=== PATIENT | male | born 1995 | race African-American/Black ===

== ENCOUNTER 2020-07-11 19:41 | Emergency (ER) | payer SELFPAY ==
[~2020-07-11] VITALS: Ht 182.9 cm; Wt 91.0 kg
[2020-07-11 20:00] VITALS: BP 121/62
[2020-07-11] MEDS ORDERED: OXYC-93 MT (21:53)
== END 2020-07-11 22:28 | disposition home or self-care (01) ==
LOC: ER 19:41
DX: Z48.01 Encounter for change or removal of surgical wound dressing (principal); F14.10 Cocaine abuse, uncomplicated; F12.10 Cannabis abuse, uncomplicated; F17.210 Nicotine dependence, cigarettes, uncomplicated; Z87.81 Personal history of (healed) traumatic fracture
CPT/HCPCS: 99283

== ENCOUNTER 2020-07-12 00:41 | Emergency (ER) | payer SELFPAY ==
[~2020-07-12] VITALS: Ht 188 cm; Wt 82.0 kg
[~2020-07-12 00:41] MED LIST: OXYC-93 MT
[2020-07-12 02:15] LABS: CHLORIDE 107 mEq/L (98-107)
[2020-07-12 02:19] LABS: ETHANOL BLOOD < 10 mg/dL
[2020-07-12 02:41] LABS: EOSINOPHILS % 5.2 % (0.0-5.0); HEMATOCRIT. 28.8 % (42.0-52.0); HEMOGLOBIN. 9.4 g/dL (14.0-18.0); LYMPHOCYTES % 24.7 % (20.0-50.0); MEAN CORPUSCULAR VOLUME 94.9 fL (80.0-94.0); MEAN PLATELET VOLUME 8.2 fl (7.4-10.4); MONOCYTES % 8.2 % (2.0-8.0); NEUTROPHILS % 59.9 % (40.0-76.0); PLATELET 411 x1000/uL (130-400); RED BLOOD CELL COUNT 3.04 mill/uL (4.7-6.1); RED CELL DISTRIBUTION WIDTH 13.8 % (11.6-14.6)
[2020-07-12] MEDS ORDERED: IBUPROFEN 600MG TABLET PO ONE (03:00)
[2020-07-12 03:16] LABS: *AMPHETAMINES SCREEN URINE PRESUMTIVE POSITIVE (NEGATIVE)
[2020-07-12 03:17] LABS: *BARBITURATES SCREEN URINE NEGATIVE (NEGATIVE); *BENZODIAZEPINES SCREEN URINE NEGATIVE (NEGATIVE); *COCAINE SCREEN URINE NEGATIVE (NEGATIVE); METHADONE URINE SCREEN NEGATIVE (NEGATIVE); OPIATES URINE SCREEN NEGATIVE (NEGATIVE)
[2020-07-12 03:18] LABS: CANNABINOID URINE SCREEN PRESUMTIVE POSITIVE (NEGATIVE); PHENCYCLIDINE URINE SCREEN NEGATIVE (NEGATIVE)
[2020-07-12 13:48] VITALS: BP 114/81
== END 2020-07-12 13:51 | disposition home or self-care (01) ==
LOC: ER 00:41
DX: U07.1 COVID-19 (principal); R45.851 Suicidal ideations; R45.850 Homicidal ideations; Z87.828 Personal history of other (healed) physical injury and trauma; I10 Essential (primary) hypertension
CPT/HCPCS: 36415; 80053; 80305; 80307; 80320; 80329; 85025; 93005; 99285; C9803; U0003; G0480

== ENCOUNTER 2020-08-18 08:20 | Emergency (ER) | payer SELFPAY ==
[~2020-08-18] VITALS: Ht 180.3 cm; Wt 84.0 kg
[2020-08-18] MEDS ORDERED: LEVETIRACETAM 1000MG PREMIX 100 ML IV ONE (09:15)
[2020-08-18] MEDS ORDERED: ONDANSETRON HCL 4MG/2ML INJ IV ONE (09:15)
[2020-08-18] MEDS ORDERED: MORPHINE SULFATE 4 MG/ML CPJ (NOT FOR IM USE) IV ONE (09:15)
[2020-08-18 09:57] LABS: BASOPHILS % 1.3 % (0.0-2.0); EOSINOPHILS % 2.6 % (0.0-5.0); HEMATOCRIT. 40.8 % (42.0-52.0); HEMOGLOBIN. 13.4 g/dL (14.0-18.0); LYMPHOCYTES % 16.8 % (20.0-50.0); MEAN CORPUSCULAR HEMOGLOBIN 29.6 pg (28.0-32.0); MEAN CORPUSCULAR VOLUME 90.2 fL (80.0-94.0); MEAN PLATELET VOLUME 9.6 fl (7.4-10.4); MONOCYTES % 7.6 % (2.0-8.0); NEUTROPHILS % 71.7 % (40.0-76.0); PLATELET 197 x1000/uL (130-400); RED BLOOD CELL COUNT 4.53 mill/uL (4.7-6.1)
[2020-08-18 10:01] LABS: CHLORIDE 106 mEq/L (98-107)
[2020-08-18 10:04] LABS: *BENZODIAZEPINES SCREEN URINE NEGATIVE (NEGATIVE)
[2020-08-18 10:05] LABS: *AMPHETAMINES SCREEN URINE PRESUMTIVE POSITIVE (NEGATIVE); *BARBITURATES SCREEN URINE NEGATIVE (NEGATIVE); *COCAINE SCREEN URINE NEGATIVE (NEGATIVE); CANNABINOID URINE SCREEN PRESUMTIVE POSITIVE (NEGATIVE); METHADONE URINE SCREEN NEGATIVE (NEGATIVE); OPIATES URINE SCREEN NEGATIVE (NEGATIVE); PHENCYCLIDINE URINE SCREEN NEGATIVE (NEGATIVE)
[2020-08-18 10:06] LABS: ETHANOL BLOOD < 10 mg/dL
[2020-08-18 11:00] VITALS: BP 116/80
[2020-08-18] MEDS ORDERED: IBUP-2029 MT (12:12)
== END 2020-08-18 14:12 | disposition home or self-care (01) ==
LOC: ER 08:20
DX: G40.909 Epilepsy, unspecified, not intractable, without status epilepticus (principal); I10 Essential (primary) hypertension; Z87.81 Personal history of (healed) traumatic fracture
CPT/HCPCS: 36415; 70450; 80053; 80305; 80320; 85025; 93005; 96365; 96375; 99285; J1953; J2270; J2405; Z7610; G0480

== ENCOUNTER 2020-09-28 01:55 | Emergency (ER) | payer SELFPAY ==
[~2020-09-28] VITALS: Ht 180.3 cm; Wt 82.0 kg
[~2020-09-28 01:55] MED LIST changes: +IBUP-2029 MT
[2020-09-28] MEDS ORDERED: ONDANSETRON HCL 4MG/2ML INJ IV STA (03:05)
[2020-09-28] MEDS ORDERED: CEFAZOLIN 1000MG PREMIX 50 ML IV ONE (03:15)
[2020-09-28] MEDS ORDERED: TETANUS, DIPHTHERIA, PERTUSSIS VAC/PF 0.5ML (>7YR OLD) IM ONE (03:15)
[2020-09-28] MEDS ORDERED: BACITRACIN ZINC OINT UDPKT TOP ONE (03:15)
[2020-09-28] MEDS ORDERED: SODIUM CHLORIDE 0.9% 1,000 ML IV ONE (03:15)
[2020-09-28] MEDS ORDERED: FENTANYL CITRATE/PF 50MCG/ML 2ML VIAL IV ONE (03:15)
[2020-09-28 03:55] LABS: CHLORIDE 108 mEq/L (98-107)
[2020-09-28 03:56] LABS: BASOPHILS % 0.9 % (0.0-2.0); EOSINOPHILS % 0.6 % (0.0-5.0); HEMATOCRIT. 38.9 % (42.0-52.0); HEMOGLOBIN. 12.7 g/dL (14.0-18.0); MEAN CORPUSCULAR HEMOGLOBIN 30.1 pg (28.0-32.0); MEAN CORPUSCULAR VOLUME 92.4 fL (80.0-94.0); MEAN PLATELET VOLUME 9.4 fl (7.4-10.4); MONOCYTES % 6.3 % (2.0-8.0); NEUTROPHILS % 82.2 % (40.0-76.0); PLATELET 203 x1000/uL (130-400); RED BLOOD CELL COUNT 4.21 mill/uL (4.7-6.1)
[2020-09-28] MEDS ORDERED: LORA10CA MT (05:43)
[2020-09-28] MEDS ORDERED: IBUP-2029 MT (05:43)
[2020-09-28] MEDS ORDERED: AMOX-424 MT (05:43)
[2020-09-28 08:21] VITALS: BP 129/88
== END 2020-09-28 10:00 | disposition home or self-care (01) ==
LOC: ER 02:22
DX: S02.40CA Maxillary fracture, right side, initial encounter for closed fracture (principal); I10 Essential (primary) hypertension; Z79.899 Other long term (current) drug therapy; S06.9X0A Unspecified intracranial injury without loss of consciousness, initial encounter; Y04.0XXA Assault by unarmed brawl or fight, initial encounter; Y93.89 Activity, other specified; Y92.89 Other specified places as the place of occurrence of the external cause; Y99.8 Other external cause status
CPT/HCPCS: 36415; 70450; 70486; 71045; 72125; 80048; 82962; 85025; 90471; 90715; 96365; 96375; 99285; A4217; J0690; J2405; J3010; J7030; Z7610

== ENCOUNTER 2020-12-02 01:28 | Emergency (ER) | payer SELFPAY ==
[~2020-12-02] VITALS: Ht 182.9 cm; Wt 82.0 kg
[~2020-12-02 01:28] MED LIST changes: +AMOX-424 MT; +LORA10CA MT
[2020-12-02 01:30] VITALS: BP 142/88
== END 2020-12-02 02:30 | disposition home or self-care (01) ==
LOC: ER 01:28
DX: F43.20 Adjustment disorder, unspecified (principal); I10 Essential (primary) hypertension; Z79.899 Other long term (current) drug therapy
CPT/HCPCS: 99283

== ENCOUNTER 2021-01-12 11:04 | Emergency (ER) | payer MEDICAID ==
[~2021-01-12] VITALS: Ht 182.9 cm; Wt 80.0 kg
[2021-01-12] MEDS ORDERED: IBUPROFEN 600MG TABLET PO ONE (11:30)
[2021-01-12] MEDS ORDERED: IBUP-2029 MT (12:46)
[2021-01-12 13:03] VITALS: BP 118/78
== END 2021-01-12 13:03 | disposition home or self-care (01) ==
LOC: ER 11:11
DX: M79.18 Myalgia, other site (principal); I10 Essential (primary) hypertension; R56.9 Unspecified convulsions; V49.9XXA Car occupant (driver) (passenger) injured in unspecified traffic accident, initial encounter; Y93.9 Activity, unspecified; Y92.410 Unspecified street and highway as the place of occurrence of the external cause; Z98.890 Other specified postprocedural states
CPT/HCPCS: 73560; 73590; 73610; 99283; Z7610

== ENCOUNTER 2021-01-12 17:20 | Emergency (ER) | payer MEDICAID ==
[~2021-01-12] VITALS: Ht 177.8 cm; Wt 75.0 kg
[2021-01-12] MEDS ORDERED: DIPHENHYDRAMINE 50MG/ML VIAL IM ONE (17:30)
[2021-01-12] MEDS ORDERED: LORAZEPAM 2MG/ML CPJ IM ONE (17:30)
[2021-01-12] MEDS ORDERED: TETANUS AND DIPHTHERIA TOX/PF 0.5ML SYR (ADULT) IM ONE (17:30)
[2021-01-12 18:14] LABS: CHLORIDE 109 mEq/L (98-107)
[2021-01-12 18:15] LABS: BASOPHILS % 1.5 % (0.0-2.0); EOSINOPHILS % 1.4 % (0.0-5.0); HEMATOCRIT. 40.6 % (42.0-52.0); HEMOGLOBIN. 14.1 g/dL (14.0-18.0); LYMPHOCYTES % 24.6 % (20.0-50.0); MEAN CORPUSCULAR HEMOGLOBIN 31.9 pg (28.0-32.0); MEAN PLATELET VOLUME 9.4 fl (7.4-10.4); MONOCYTES % 12.7 % (2.0-8.0); NEUTROPHILS % 59.8 % (40.0-76.0); PLATELET 216 x1000/uL (130-400); RED BLOOD CELL COUNT 4.41 mill/uL (4.7-6.1); RED CELL DISTRIBUTION WIDTH 13.5 % (11.6-14.6)
[2021-01-12] MEDS ORDERED: TETANUS, DIPHTHERIA, PERTUSSIS VAC/PF 0.5ML (>7YR OLD) IM ONE (18:15)
[2021-01-12 18:19] LABS: ETHANOL BLOOD < 10 mg/dL
[2021-01-12 18:29] LABS: CLARITY URINE CLOUDY (CLEAR); COLOR URINE DARK YELLOW (YELLOW); KETONES URINE 2+ (NEGATIVE); LEUKOCYTE ESTERASE URINE 2+ (NEGATIVE); NITRITE URINE NEGATIVE (NEGATIVE); OCCULT BLOOD URINE TRACE (NEGATIVE); PH URINE 5.5 (4.5-8.0); PROTEIN URINE 1+ (NEGATIVE); SPECIFIC GRAVITY URINE 1.031 (1.005-1.030)
[2021-01-12 19:01] LABS: *AMPHETAMINES SCREEN URINE PRESUMTIVE POSITIVE (NEGATIVE); *BARBITURATES SCREEN URINE NEGATIVE (NEGATIVE); *BENZODIAZEPINES SCREEN URINE NEGATIVE (NEGATIVE); *COCAINE SCREEN URINE NEGATIVE (NEGATIVE); METHADONE URINE SCREEN NEGATIVE (NEGATIVE); OPIATES URINE SCREEN NEGATIVE (NEGATIVE); PHENCYCLIDINE URINE SCREEN NEGATIVE (NEGATIVE)
[2021-01-12 19:02] LABS: CANNABINOID URINE SCREEN PRESUMTIVE POSITIVE (NEGATIVE)
[2021-01-12] MEDS: DOXYCYCLINE HYCLATE 100MG CAPSULE PO SCH (23:00)
[2021-01-12] MEDS ORDERED: CEFTRIAXONE SODIUM 500 MG/VIAL IV ONE (23:00)
[2021-01-13] MEDS: DOXYCYCLINE HYCLATE 100MG CAPSULE PO SCH ×3 (09:00→13:51)
[2021-01-13] MEDS ORDERED: TRAZODONE HCL 50MG TABLET PO SCH (18:00)
[2021-01-13] MEDS ORDERED: HALOPERIDOL LACTATE 5MG/ML VIAL IM STA (20:04)
[2021-01-13] MEDS ORDERED: LORAZEPAM 2MG/ML CPJ IM STA (20:04)
[2021-01-15] MEDS ORDERED: HALOPERIDOL LACTATE 5MG/ML VIAL IM ONE (11:30)
[2021-01-15] MEDS ORDERED: LORAZEPAM 2MG/ML CPJ IM ONE (11:30)
[2021-01-15] MEDS ORDERED: OLANZAPINE 10 MG/VIAL IM ONE (13:15)
[2021-01-16 10:20] VITALS: BP 130/81
== END 2021-01-16 10:49 | disposition home or self-care (01) ==
LOC: ER 17:20
DX: R45.851 Suicidal ideations (principal); R44.0 Auditory hallucinations; R56.9 Unspecified convulsions; I10 Essential (primary) hypertension; F31.9 Bipolar disorder, unspecified; F19.10 Other psychoactive substance abuse, uncomplicated; N39.0 Urinary tract infection, site not specified; Z20.2 Contact with and (suspected) exposure to infections with a predominantly sexual mode of transmission; Z59.0 Homelessness
CPT/HCPCS: 36415; 70450; 80053; 80305; 80307; 80320; 80329; 81003; 85025; 87086; 87426; 90715; 96372; 99285; J0696; J1200; J1630; J2060; 90714; G0480

== ENCOUNTER 2021-05-01 11:34 | Emergency (ER) | payer SELFPAY ==
[~2021-05-01] VITALS: Ht 177.8 cm; Wt 81.0 kg
[2021-05-01] MEDS ORDERED: SODIUM CHLORIDE 0.9% 1,000 ML IV ONE (12:15)
[2021-05-01 12:46] LABS: CHLORIDE 109 mEq/L (98-107)
[2021-05-01 12:52] LABS: ETHANOL BLOOD < 10 mg/dL
[2021-05-01 12:53] LABS: BASOPHILS % 0.8 % (0.0-2.0); EOSINOPHILS % 0.6 % (0.0-5.0); HEMATOCRIT. 38.5 % (42.0-52.0); LYMPHOCYTES % 21.1 % (20.0-50.0); MEAN CORPUSCULAR VOLUME 94.9 fL (80.0-94.0); MEAN PLATELET VOLUME 8.6 fl (7.4-10.4); MONOCYTES % 7.9 % (2.0-8.0); NEUTROPHILS % 69.6 % (40.0-76.0); PLATELET 188 x1000/uL (130-400); RED BLOOD CELL COUNT 4.05 mill/uL (4.7-6.1)
[2021-05-01 13:06] LABS: *AMPHETAMINES SCREEN URINE PRESUMTIVE POSITIVE (NEGATIVE); *BARBITURATES SCREEN URINE NEGATIVE (NEGATIVE); *BENZODIAZEPINES SCREEN URINE NEGATIVE (NEGATIVE); *COCAINE SCREEN URINE NEGATIVE (NEGATIVE); CANNABINOID URINE SCREEN PRESUMTIVE POSITIVE (NEGATIVE); METHADONE URINE SCREEN NEGATIVE (NEGATIVE); OPIATES URINE SCREEN NEGATIVE (NEGATIVE); PHENCYCLIDINE URINE SCREEN NEGATIVE (NEGATIVE)
[2021-05-01 13:07] LABS: VALPROIC ACID < 3.0 ug/mL (50-100)
[2021-05-01 13:15] VITALS: BP 135/73
[2021-05-01] MEDS ORDERED: IBUPROFEN 400MG TABLET PO ONE (13:15)
[2021-05-01] MEDS ORDERED: IBUP-2028 MT (14:22)
== END 2021-05-01 17:19 | disposition home or self-care (01) ==
LOC: ER 11:34
DX: M54.2 Cervicalgia (principal); M54.9 Dorsalgia, unspecified; M25.562 Pain in left knee; M25.561 Pain in right knee; T50.991A Poisoning by other drugs, medicaments and biological substances, accidental (unintentional), initial encounter; Y92.9 Unspecified place or not applicable; F31.9 Bipolar disorder, unspecified; I10 Essential (primary) hypertension; G40.909 Epilepsy, unspecified, not intractable, without status epilepticus; V89.2XXA Person injured in unspecified motor-vehicle accident, traffic, initial encounter; Y93.89 Activity, other specified; Y92.410 Unspecified street and highway as the place of occurrence of the external cause; Y99.9 Unspecified external cause status
CPT/HCPCS: 36415; 70450; 72125; 73560; 80053; 80165; 80305; 80320; 85025; 99285; J7030; G0480

== ENCOUNTER 2022-01-03 13:17 | Emergency (ER) | payer MEDICAID ==
[~2022-01-03] VITALS: Ht 177.8 cm; Wt 73.0 kg
[~2022-01-03 13:17] MED LIST changes: +IBUP-2028 MT
[2022-01-03 13:21] VITALS: BP 113/69
[2022-01-03] MEDS ORDERED: ACETAMINOPHEN 500MG TABLET PO STA (13:40)
== END 2022-01-03 14:24 | disposition left against medical advice (07) ==
LOC: ER 13:17
DX: R56.9 Unspecified convulsions (principal); I10 Essential (primary) hypertension; Z98.890 Other specified postprocedural states
CPT/HCPCS: 82962; 93005; 99283

== ENCOUNTER 2022-01-17 00:51 | Emergency (ER) | payer MEDICAID ==
[~2022-01-17] VITALS: Ht 188 cm; Wt 85.5 kg
[2022-01-17 01:01] VITALS: BP 124/77
== END 2022-01-17 02:30 | disposition left against medical advice (07) ==
LOC: ER 01:08
DX: Z53.21 Procedure and treatment not carried out due to patient leaving prior to being seen by health care provider (principal)

== ENCOUNTER 2022-02-01 22:42 | Emergency (ER) | payer MEDICAID ==
[~2022-02-01] VITALS: Ht 182.9 cm; Wt 86.0 kg
[2022-02-01] MEDS ORDERED: LEVETIRACETAM 500MG PREMIX 100 ML IV ONE (23:30)
[2022-02-01 23:36] LABS: BASOPHILS % 0.6 % (0.0-2.0); EOSINOPHILS % 0.4 % (0.0-5.0); HEMATOCRIT. 43.1 % (42.0-52.0); HEMOGLOBIN. 14.2 g/dL (14.0-18.0); MEAN CORPUSCULAR HEMOGLOBIN 31.4 pg (28.0-32.0); MEAN CORPUSCULAR VOLUME 95.1 fL (80.0-94.0); MONOCYTES % 13.2 % (2.0-8.0); NEUTROPHILS % 74.8 % (40.0-76.0); PLATELET 163 x1000/uL (130-400); RED BLOOD CELL COUNT 4.53 mill/uL (4.7-6.1); RED CELL DISTRIBUTION WIDTH 12.7 % (11.6-14.6)
[2022-02-01 23:56] LABS: CHLORIDE 102 mEq/L (98-107)
[2022-02-02 00:05] LABS: ETHANOL BLOOD < 10 mg/dL
[2022-02-02 00:06] LABS: CARBAMAZEPINE < 0.5 ug/mL (4-12); PHENOBARBITAL < 2.1 ug/mL (15.0-40.0); VALPROIC ACID < 3.0 ug/mL (50-100)
[2022-02-02] MEDS ORDERED: KETOROLAC 15MG/ML VIAL IV ONE (00:30)
[2022-02-02] MEDS ORDERED: MIDAZOLAM HCL 2 MG/2 ML VIAL IV ONE (00:45)
[2022-02-02 01:32] LABS: *AMPHETAMINES SCREEN URINE PRESUMTIVE POSITIVE (NEGATIVE); *BARBITURATES SCREEN URINE NEGATIVE (NEGATIVE); *BENZODIAZEPINES SCREEN URINE NEGATIVE (NEGATIVE); *COCAINE SCREEN URINE NEGATIVE (NEGATIVE); CANNABINOID URINE SCREEN PRESUMTIVE POSITIVE (NEGATIVE); METHADONE URINE SCREEN NEGATIVE (NEGATIVE); OPIATES URINE SCREEN NEGATIVE (NEGATIVE); PHENCYCLIDINE URINE SCREEN NEGATIVE (NEGATIVE)
[2022-02-02] MEDS ORDERED: KEPP500 MT (01:38)
[2022-02-02 04:07] VITALS: BP 111/69
== END 2022-02-02 04:10 | disposition home or self-care (01) ==
LOC: ER 22:42
DX: R56.9 Unspecified convulsions (principal); F19.10 Other psychoactive substance abuse, uncomplicated; F10.229 Alcohol dependence with intoxication, unspecified; Y90.0 Blood alcohol level of less than 20 mg/100 ml; F31.9 Bipolar disorder, unspecified; I10 Essential (primary) hypertension; Z79.899 Other long term (current) drug therapy
CPT/HCPCS: 36415; 70450; 80053; 80156; 80165; 80184; 80185; 80305; 80320; 85025; 87070; 87430; 93005; 96374; 96375; 99285; J1885; J1953; J2250; G0480

== ENCOUNTER 2022-02-03 09:47 | Emergency (ER) | payer MEDICAID ==
[~2022-02-03] VITALS: Ht 188 cm; Wt 89.0 kg
[~2022-02-03 09:47] MED LIST changes: +KEPP500 MT
[2022-02-03 09:55] VITALS: BP 98/52
[2022-02-03 10:30] LABS: BASOPHILS % 0.4 % (0.0-2.0); EOSINOPHILS % 0.5 % (0.0-5.0); HEMATOCRIT. 38.9 % (42.0-52.0); HEMOGLOBIN. 13.2 g/dL (14.0-18.0); LYMPHOCYTES % 16.7 % (20.0-50.0); MEAN CORPUSCULAR HEMOGLOBIN 31.9 pg (28.0-32.0); MEAN CORPUSCULAR VOLUME 94.1 fL (80.0-94.0); MEAN PLATELET VOLUME 9.1 fl (7.4-10.4); MONOCYTES % 11.5 % (2.0-8.0); NEUTROPHILS % 70.9 % (40.0-76.0); PLATELET 159 x1000/uL (130-400); RED BLOOD CELL COUNT 4.13 mill/uL (4.7-6.1); RED CELL DISTRIBUTION WIDTH 12.6 % (11.6-14.6)
[2022-02-03 10:38] LABS: CHLORIDE 104 mEq/L (98-107)
[2022-02-03 10:40] LABS: INR 1.2; PROTHROMBIN TIME 12.3 sec (9.6-11.0)
== END 2022-02-03 13:17 | disposition home or self-care (01) ==
LOC: ER 09:47 → CANBEDREQ 12:53 → ER 13:17
DX: Z00.00 Encounter for general adult medical examination without abnormal findings (principal); I10 Essential (primary) hypertension; G40.909 Epilepsy, unspecified, not intractable, without status epilepticus; F31.9 Bipolar disorder, unspecified; F10.21 Alcohol dependence, in remission
CPT/HCPCS: 36415; 71045; 80053; 83605; 84145; 85025; 93005; 99285